=== PATIENT | male | born 1970 | race Caucasian/White ===

== ENCOUNTER 2020-05-16 12:27 | Outpatient (CLI) | payer BC ==
[2020-05-16] MEDS ORDERED: LIDOCAINE-MPF 1%, 5ML ONE (12:39)
== END 2020-05-16 23:59 | disposition home or self-care (01) ==
LOC: RAD 12:27
PROVIDERS: ATTEND Physician Assistant Medical
DX: E04.1 Nontoxic single thyroid nodule (principal)
CPT/HCPCS: 10005; 60100; 76942; 88112; 88305